=== PATIENT | male | born 1995 | race African-American/Black ===

== ENCOUNTER 2019-04-22 11:42 | Emergency (ER) | payer SELFPAY ==
[~2019-04-22] VITALS: Ht 165.1 cm; Wt 54.4 kg
[2019-04-22 11:48] VITALS: BP 109/79
--- NOTE | 2019-04-22 12:00 | NUR ---
PT WALKED TO ROOM WITH STEADY GAIT, CO FLU-LIKE SUMPTOM. NO FURTHER CO. NO ACUTE DISTRESS.
--- NOTE | 2019-04-22 12:38 | NUR ---
STREP THROAT & FLU SWAB SPECIMENS SENT TO LAB.
[2019-04-22 14:30] VITALS: BP 111/81
--- NOTE | 2019-04-22 14:31 | NUR ---
Patient discharged with v/s stable. Written and verbal after care instructions given and explained. Patient alert, oriented and verbalized understanding of instructions. Ambulatory with steady gait. All questions addressed prior to discharge. ID band removed. Patient advised to follow up with PMD. Rx of MOTRIN, CODEINE PHOSPHATE/PROMETHAZINE given. Patient educated on indication of medication including possible reaction and side effects. Opportunity to ask questions provided and answered.
== END 2019-04-22 14:31 | disposition home or self-care (01) ==
LOC: MED 11:42
DX: B34.9 Viral infection, unspecified (principal)
CPT/HCPCS: 87081; 87804; 99283

== ENCOUNTER 2019-04-29 13:27 | Emergency (ER) | payer SELFPAY ==
[~2019-04-29] VITALS: Ht 165.1 cm; Wt 52.2 kg
[2019-04-29 13:47] VITALS: BP 123/81
--- NOTE | 2019-04-29 13:51 | NUR ---
PT AMBULATED OT ED [place]
--- NOTE | 2019-04-29 14:25 | NUR ---
PT TO ED WITH C/O COLD S/S WITH RHINORRHEA AND COUGH LASTING 1 MONTH. LUNG SOUNDS CLEAR TO ASCULTATION. NO DISTRESS NOTED. IN BED FOR MD PADRON.
[2019-04-29] MEDS ORDERED: DEXAMETHASONE 10 MG/ML VIAL IM ONE (14:30)
--- NOTE | 2019-04-29 14:42 | NUR ---
Patient discharged with v/s stable. Written and verbal after care instructions given and explained. Patient alert, oriented and verbalized understanding of instructions. Ambulatory with steady gait. All questions addressed prior to discharge. ID band removed. Patient advised to follow up with PMD. Rx of FLONASE, PATANOL EYE GTT, LORATIDINE given. Patient educated on indication of medication including possible reaction and side effects. Opportunity to ask questions provided and answered.
[2019-04-29 14:43] VITALS: BP 123/81
== END 2019-04-29 14:42 | disposition home or self-care (01) ==
LOC: MED 13:27
DX: J30.2 Other seasonal allergic rhinitis (principal)
CPT/HCPCS: 96372; 99283; J1100

== ENCOUNTER 2019-05-04 14:17 | Emergency (ER) | payer SELFPAY ==
[~2019-05-04] VITALS: Ht 165.1 cm; Wt 50.3 kg
--- NOTE | 2019-05-04 14:17 | NUR ---
PT BIBA BLS TO ER BED 03
[2019-05-04 14:19] VITALS: BP 135/71
--- NOTE | 2019-05-04 14:20 | NUR ---
JULIANWilmar FROM HOME C/O CONTINUOUS HEADACHE & CHEST PAIN WITH NON-PRODUCTIVE COUGH 10/19. SEEN HERE FOR PHARYNGITIS X YESTERDAY AND WAS SENT HOME WITH RX. PER PATIENT, HE HAS FILLED MEDICATION AND HAS BEEN TAKING THEM ACCORDINGLY. PT HAS BEEN SEEN IN ER ON NUMEROUS OCCASIONS FOR S/S. LUNGS CLEAR BILTERALLY. RR EVEN AND UNLABORED.
[2019-05-04 15:11] VITALS: BP 129/70
--- NOTE | 2019-05-04 15:11 | NUR ---
Patient discharged with v/s stable. Written and verbal after care instructions given and explained REGARDIGN ALLERGIC RHINITIS. Patient verbalized understanding. Ambulatory with steady gait. All questions addressed prior to discharge. Advised to follow up with PMD. INSTRUCTED PT THAT HE NEEDS TO CONTINUE TAKING MEDICATIONS THAT HE RECIEVED YESTERDAY IN ORDER TO SEE IMPROVED RESULTS. PT GIVEN 2 REFERRALS FOR FAMILY MEDICINE TO FOLLOW UP WITH.
== END 2019-05-04 15:11 | disposition home or self-care (01) ==
LOC: MED 14:17
DX: J30.9 Allergic rhinitis, unspecified (principal); R51 Headache; H57.89 Other specified disorders of eye and adnexa
CPT/HCPCS: 99281